=== PATIENT | male | born 1980 | race African-American/Black ===

== ENCOUNTER 2024-07-09 20:06 | Inpatient (IN) | payer OTHER, MEDICAID ==
[~2024-07-09] VITALS: Ht 175.3 cm; Wt 59.0 kg
[2024-07-09 21:40] LABS: HEMATOCRIT. 31.1 % (42.0-52.0); HEMOGLOBIN. 10.5 g/dL (14.0-18.0); MEAN CORPUSCULAR HEMOGLOBIN 28.4 pg (28.0-32.0); MEAN CORPUSCULAR HGB CONC 33.9 g/dL (31.0-37.0); MEAN CORPUSCULAR VOLUME 83.8 fL (80.0-94.0); MEAN PLATELET VOLUME 10.3 fl (7.4-10.4); PLATELET 989 x1000/uL (130-400); RED BLOOD CELL COUNT 3.72 mill/uL (4.7-6.1); RED CELL DISTRIBUTION WIDTH 23.1 % (11.6-14.6); WHITE BLOOD COUNT 17.6 x1000/uL (4.5-11.0)
[2024-07-09 21:42] LABS: DIFFERENTIAL COMMENT 1
[2024-07-09 21:45] LABS: CHLORIDE 105 mEq/L (98-107); POTASSIUM 3.9 mEq/L (3.5-5.1); SODIUM 139 mEq/L (136-145)
[2024-07-09 21:46] LABS: CALCIUM 10.3 mg/dL (8.7-10.4); CARBON DIOXIDE 26 mEq/L (21-32)
[2024-07-09 21:51] LABS: CREATININE 0.8 mg/dL (0.6-1.3); GLUCOSE 126 mg/dL (70-105); UREA NITROGEN BLOOD 8 mg/dL (9-23)
[2024-07-09] MEDS: SODIUM CHLORIDE 0.9% 1,000 ML IV ONE (21:52)
[2024-07-09 21:53] LABS: ALANINE AMINOTRANSFERASE 19 IU/L (10-49); ALBUMIN 5.3 g/dL (3.2-4.8); ASPARTATE AMINOTRANSFERASE 39 IU/L (<34); TROPONIN I HIGH SENSITIVITY 30 ng/L (3.0-53)
[2024-07-09 21:54] LABS: BILIRUBIN DIRECT 0.6 mg/dL (<=3.0); BILIRUBIN TOTAL 1.9 mg/dL (0.1-1.0); PROTEIN TOTAL 9.2 g/dL (6.0-8.3)
[2024-07-09 22:00] LABS: ANISOCYTOSIS 3+; NUCLEATED RED BLOOD CELLS 2 /100 WBC; PLATELET ESTIMATE MARKEDLY INCREASED; SICKLE CELLS 2+
[2024-07-09] MEDS: KETOROLAC 30MG/ML VIAL IV STA (23:16)
[2024-07-10] MEDS ORDERED: MORPHINE SULFATE 4 MG/ML INJ (FOR IV/IM USE) IV STA (00:42)
[2024-07-10 01:16] LABS: TROPONIN I HIGH SENSITIVITY 29 ng/L (3.0-53)
[2024-07-10 01:58] LABS: CLARITY URINE CLEAR (CLEAR); COLOR URINE YELLOW (YELLOW); GLUCOSE URINE NEGATIVE (NEGATIVE); KETONES URINE NEGATIVE (NEGATIVE); LEUKOCYTE ESTERASE URINE TRACE (NEGATIVE); NITRITE URINE NEGATIVE (NEGATIVE); OCCULT BLOOD URINE NEGATIVE (NEGATIVE); PH URINE 5.5 (4.5-8.0); PROTEIN URINE 2+ (NEGATIVE); SPECIFIC GRAVITY URINE 1.015 (1.005-1.030)
[2024-07-10 02:11] LABS: BACTERIA URINE TRACE; RBC URINE NONE SEEN /hpf (0-2); SQUAMOUS EPITHELIAL CELL URINE FEW /lpf (RARE/1+); WBC URINE 0-2 /hpf (0-2)
[2024-07-10] MEDS ORDERED: MORPHINE SULFATE 4 MG/ML INJ (FOR IV/IM USE) IV NR (02:45)
[2024-07-10] MEDS: SODIUM CHLORIDE 0.9% 1,000 ML IV ONE (03:30)
[2024-07-10] MEDS ORDERED: GUAIFENESIN 200MG/10ML SUGAR FREE UDC PO PRN (06:30)
[2024-07-10] MEDS ORDERED: CLONIDINE 0.1MG TABLET PO PRN (06:30)
[2024-07-10] MEDS ORDERED: ACETAMINOPHEN 325MG TABLET PO PRN ×2 (06:30)
[2024-07-10] MEDS ORDERED: DOCUSATE SODIUM 100MG CAPSULE PO PRN (06:30)
[2024-07-10] MEDS ORDERED: IPRATROPIUM/ALBUTEROL 0.5-3(2.5)MG/3ML NEB HHN PRN (06:30)
[2024-07-10 07:39] LABS: IRON 38 ug/dL (65-175)
[2024-07-10 07:41] LABS: TOTAL IRON BINDING CAPACITY 147 ug/dl (250-425)
[2024-07-10 07:45] LABS: FOLIC ACID (FOLATE) SERUM 7.41 ng/mL (>5.38); VITAMIN B12 SERUM 871 pg/mL (211-911)
[2024-07-10] MEDS: LACTATED RINGERS 1,000 ML IV SCH (09:37)
[2024-07-10] MEDS: MORPHINE SULFATE 4 MG/ML INJ (FOR IV/IM USE) IV NR (09:38)
[2024-07-10] MEDS: HYDROXYUREA 500MG CAPSULE PO NR (10:07)
[2024-07-10 17:35] LABS: CREATINE KINASE 75 IU/L (46-171)
[2024-07-10 23:11] VITALS: BP 100/55; PULSE 70; RESP 16; TEMP 36.5292
[2024-07-11] VITALS: BP 100/55; PULSE 70; RESP 18; TEMP 36.50292; O2SAT 99
[2024-07-11 00:07] LABS: CREATINE KINASE 63 IU/L (46-171)
[2024-07-11] MEDS: DIPHENHYDRAMINE 50MG/ML VIAL IV PRN (02:46)
[2024-07-11] MEDS: ONDANSETRON HCL 4MG/2ML INJ IV PRN (02:47)
[2024-07-11] MEDS: KETOROLAC 15MG/ML VIAL IV PRN (02:54)
[2024-07-11 04:00] VITALS: BP 111/58; PULSE 79; RESP 18; TEMP 36.50292; O2SAT 100
[2024-07-11 06:23] LABS: CHLORIDE 110 mEq/L (98-107); POTASSIUM 3.8 mEq/L (3.5-5.1); SODIUM 144 mEq/L (136-145)
[2024-07-11 06:24] LABS: CARBON DIOXIDE 27 mEq/L (21-32)
[2024-07-11 06:25] LABS: CALCIUM 9.4 mg/dL (8.7-10.4)
[2024-07-11 06:29] LABS: CREATININE 0.8 mg/dL (0.6-1.3)
[2024-07-11 06:30] LABS: GLUCOSE 77 mg/dL (70-105); UREA NITROGEN BLOOD 13 mg/dL (9-23)
[2024-07-11 06:34] LABS: T4 FREE 1.23 ng/dL (0.89-1.76); THYROID STIMULATING HORMONE 1.23 uIU/mL (0.55-4.78)
[2024-07-11 06:43] LABS: HEMATOCRIT. 27.4 % (42.0-52.0); HEMOGLOBIN. 9.1 g/dL (14.0-18.0); MEAN CORPUSCULAR HEMOGLOBIN 28.1 pg (28.0-32.0); MEAN CORPUSCULAR HGB CONC 33.2 g/dL (31.0-37.0); MEAN CORPUSCULAR VOLUME 84.5 fL (80.0-94.0); MEAN PLATELET VOLUME 11.1 fl (7.4-10.4); PLATELET 832 x1000/uL (130-400); RED BLOOD CELL COUNT 3.24 mill/uL (4.7-6.1); RED CELL DISTRIBUTION WIDTH 22.1 % (11.6-14.6)
[2024-07-11 07:10] LABS: DIFFERENTIAL COMMENT 1
[2024-07-11 08:00] VITALS: BP 110/43; PULSE 68; RESP 18; TEMP 36.61404; O2SAT 96
[2024-07-11] MEDS ORDERED: NALOXONE HCL 0.4MG/ML VIAL IV PRN (08:15)
[2024-07-11] MEDS: MORPHINE SULFATE 2 MG/ML INJ (NOT FOR IM USE) IV PRN (09:09)
[2024-07-11 10:05] LABS: *AMPHETAMINES SCREEN URINE NEGATIVE (NEGATIVE); *BARBITURATES SCREEN URINE NEGATIVE (NEGATIVE); *BENZODIAZEPINES SCREEN URINE NEGATIVE (NEGATIVE); *COCAINE SCREEN URINE NEGATIVE (NEGATIVE); CANNABINOID URINE SCREEN NEGATIVE (NEGATIVE); ECSTASY MDMA SCREEN URINE NEGATIVE (NEGATIVE); METHADONE URINE SCREEN NEGATIVE (NEGATIVE); OPIATES URINE SCREEN PRESUMPTIVE POSITIVE (NEGATIVE); PHENCYCLIDINE URINE SCREEN NEGATIVE (NEGATIVE)
[2024-07-11 11:14] LABS: ALANINE AMINOTRANSFERASE 15 IU/L (10-49); ALBUMIN 4.4 g/dL (3.2-4.8); ASPARTATE AMINOTRANSFERASE 33 IU/L (<34); BILIRUBIN DIRECT 0.6 mg/dL (<=3.0); BILIRUBIN TOTAL 1.7 mg/dL (0.1-1.0); PROTEIN TOTAL 7.7 g/dL (6.0-8.3)
[2024-07-11 12:00] VITALS: BP 101/67; PULSE 57; RESP 18; TEMP 36.16956; O2SAT 98
[2024-07-11 16:00] VITALS: BP 96/55; PULSE 60; RESP 18; TEMP 36.50292; O2SAT 97
[2024-07-11 16:25] LABS: NUCLEATED RED BLOOD CELLS 1 /100 WBC
[2024-07-11 16:33] LABS: TARGET CELLS 2+
[2024-07-11 16:39] LABS: GIANT PLATELETS FEW; SICKLE CELLS 2+; TEAR DROP CELLS 1+
[2024-07-11 16:42] LABS: PLATELET ESTIMATE MARKEDLY INCREASED
[2024-07-11 16:46] LABS: ANISOCYTOSIS 3+
[2024-07-11 20:00] VITALS: BP 102/48; PULSE 64; RESP 20; TEMP 36.50292; O2SAT 99
[2024-07-12] VITALS: BP 101/58; PULSE 79; RESP 19; TEMP 36.61404; O2SAT 99
[2024-07-12 04:00] VITALS: BP 103/61; PULSE 81; RESP 20; TEMP 36.33624; O2SAT 100
[2024-07-12 08:00] VITALS: BP 106/60; PULSE 63; RESP 18; TEMP 36.50292; O2SAT 97
[2024-07-12 12:00] VITALS: BP 95/62; PULSE 68; RESP 18; TEMP 36.61404; O2SAT 98
[2024-07-12 13:17] VITALS: RESP 18
[2024-07-12] MEDS ORDERED: HYDR500C18 MT (15:41)
[2024-07-12 15:48] VITALS: BP 100/62; PULSE 74; TEMP 97.6; O2SAT 98
[2024-07-12 17:12] LABS: CHLORIDE 103 mEq/L (98-107); POTASSIUM 3.8 mEq/L (3.5-5.1); SODIUM 139 mEq/L (136-145)
[2024-07-12 17:13] LABS: CALCIUM 9.8 mg/dL (8.7-10.4); CARBON DIOXIDE 30 mEq/L (21-32)
[2024-07-12 17:18] LABS: CREATININE 0.8 mg/dL (0.6-1.3); GLUCOSE 62 mg/dL (70-105); UREA NITROGEN BLOOD 8 mg/dL (9-23)
[2024-07-12 17:20] LABS: ALANINE AMINOTRANSFERASE 14 IU/L (10-49); ALBUMIN 4.6 g/dL (3.2-4.8); ASPARTATE AMINOTRANSFERASE 31 IU/L (<34); BILIRUBIN DIRECT 0.4 mg/dL (<=3.0); BILIRUBIN TOTAL 1.4 mg/dL (0.1-1.0); PROTEIN TOTAL 7.8 g/dL (6.0-8.3)
[2024-07-12 17:26] LABS: HEMATOCRIT. 30.8 % (42.0-52.0); MEAN CORPUSCULAR HGB CONC 32.4 g/dL (31.0-37.0); MEAN CORPUSCULAR VOLUME 83.5 fL (80.0-94.0); MEAN PLATELET VOLUME 11.5 fl (7.4-10.4); PLATELET 935 x1000/uL (130-400); RED BLOOD CELL COUNT 3.69 mill/uL (4.7-6.1); RED CELL DISTRIBUTION WIDTH 22.4 % (11.6-14.6); WHITE BLOOD COUNT 14.7 x1000/uL (4.5-11.0)
[2024-07-12 17:31] LABS: DIFFERENTIAL COMMENT 1
[2024-07-12 23:30] LABS: NUCLEATED RED BLOOD CELLS 6 /100 WBC
[2024-07-12 23:31] LABS: ANISOCYTOSIS 3+; HYPOCHROMASIA 1+; PLATELET ESTIMATE MARKEDLY INCREASED; SICKLE CELLS 2+; TARGET CELLS 1+
[2024-07-12 23:32] LABS: GIANT PLATELETS FEW; TEAR DROP CELLS 1+
[2024-07-14 15:06] LABS: TESTOSTERONE FREE <0.2 pg/mL (6.8-21.5)
== END 2024-07-12 17:00 | disposition home or self-care (01) | DRG 812 ==
LOC: ER 20:06 → 5WST 07-10 02:25 → EDBEDREQ 07-10 02:32 → 8WST 07-10 21:04
PROVIDERS: ADMIT Preventive Medicine Clinical Informatics; ATTEND Preventive Medicine Clinical Informatics
DX: D57.09 Hb-SS disease with crisis with other specified complication (principal); C92.10 Chronic myeloid leukemia, BCR/ABL-positive, not having achieved remission; D75.839 Thrombocytosis, unspecified; R70.1 Abnormal plasma viscosity; F64.0 Transsexualism; F64.9 Gender identity disorder, unspecified; E80.6 Other disorders of bilirubin metabolism
CPT/HCPCS: 36415; 71045; 76700; 80048; 80076; 80305; 81003; 82550; 82607; 82746; 83540; 83550; 84145; 84402; 84403; 84439; 84443; 84484; 85025; 85044; 93005; 93970; 99285; J1200; J1885; J2270; J2405; J7030

== ENCOUNTER 2024-07-18 09:50 | Inpatient (IN) | payer OTHER, MEDICAID, MEDICARE ==
[~2024-07-18] VITALS: Ht 154.9 cm; Wt 68.9 kg
[~2024-07-18 09:50] MED LIST: HYDR500C18 MT
[2024-07-18 10:21] LABS: CLARITY URINE CLEAR (CLEAR); COLOR URINE DARK YELLOW (YELLOW); GLUCOSE URINE NEGATIVE (NEGATIVE); KETONES URINE NEGATIVE (NEGATIVE); LEUKOCYTE ESTERASE URINE TRACE (NEGATIVE); NITRITE URINE NEGATIVE (NEGATIVE); OCCULT BLOOD URINE NEGATIVE (NEGATIVE); PROTEIN URINE 1+ (NEGATIVE); SPECIFIC GRAVITY URINE 1.014 (1.005-1.030)
[2024-07-18 10:30] LABS: BACTERIA URINE 1+; RBC URINE NONE SEEN /hpf (0-2); SQUAMOUS EPITHELIAL CELL URINE NONE SEEN /lpf (RARE/1+); WBC URINE 0-2 /hpf (0-2); YEAST URINE NONE SEEN
[2024-07-18 10:30] LABS: HEMOGLOBIN. 8.9 g/dL (14.0-18.0); MEAN CORPUSCULAR VOLUME 81.9 fL (80.0-94.0); MEAN PLATELET VOLUME 10.8 fl (7.4-10.4)
[2024-07-18 10:38] LABS: DIFFERENTIAL COMMENT 1
[2024-07-18 10:40] LABS: CARBON DIOXIDE 23 mEq/L (21-32); CHLORIDE 104 mEq/L (98-107); POTASSIUM 3.5 mEq/L (3.5-5.1); SODIUM 136 mEq/L (136-145)
[2024-07-18 10:41] LABS: CALCIUM 9.3 mg/dL (8.7-10.4)
[2024-07-18] MEDS ORDERED: ONDANSETRON HCL 4MG/2ML INJ IV ONE (10:45)
[2024-07-18] MEDS ORDERED: MORPHINE SULFATE 4 MG/ML INJ (FOR IV/IM USE) IV ONE (10:45)
[2024-07-18] MEDS: SODIUM CHLORIDE 0.9% 1,000 ML IV ONE (10:45)
[2024-07-18 10:46] LABS: GLUCOSE 117 mg/dL (70-105); UREA NITROGEN BLOOD 20 mg/dL (9-23)
[2024-07-18 10:47] LABS: TROPONIN I HIGH SENSITIVITY 24 ng/L (3.0-53)
[2024-07-18 10:55] LABS: CREATININE 1.4 mg/dL (0.6-1.3)
[2024-07-18 11:18] LABS: ANISOCYTOSIS 4+; NUCLEATED RED BLOOD CELLS 7 /100 WBC; PLATELET ESTIMATE MARKEDLY INCREASED
[2024-07-18 11:19] LABS: TARGET CELLS 1+
[2024-07-18 11:20] LABS: GIANT PLATELETS 1+; SICKLE CELLS 2+
[2024-07-18 11:21] LABS: PLATELET 1452 x1000/uL (130-400)
[2024-07-18] MEDS: MORPHINE SULFATE 4 MG/ML INJ (FOR IV/IM USE) IV NR (12:49)
[2024-07-18] MEDS: HYDROXYUREA 500MG CAPSULE PO ONE (12:49)
[2024-07-18] MEDS: ONDANSETRON HCL 4MG/2ML INJ IV NR (12:50)
[2024-07-18] MEDS: SODIUM CHLORIDE 0.9% 1000ML BAG (SEPSIS BOLUS) IV ONE (13:50)
[2024-07-18] MEDS: PIPERACILLIN/TAZO 3.375G/50ML 50 ML IV SCH (13:51)
[2024-07-18 16:00] VITALS: BP 110/52; PULSE 109; RESP 18; TEMP 37.3632
[2024-07-18] MEDS ORDERED: NALOXONE HCL 0.4MG/ML VIAL IV PRN (19:15)
[2024-07-18] MEDS ORDERED: CLONIDINE 0.1MG TABLET PO PRN (19:15)
[2024-07-18] MEDS ORDERED: IPRATROPIUM/ALBUTEROL 0.5-3(2.5)MG/3ML NEB HHN PRN (19:15)
[2024-07-18] MEDS ORDERED: PIPERACILLIN/TAZOBACTAM 3.375 G in DEXTROSE 5% WATER 50 ML IV SCH (19:15)
[2024-07-18] MEDS ORDERED: ONDANSETRON HCL 4MG/2ML INJ IV PRN (19:15)
[2024-07-18 20:00] VITALS: BP 97/41; PULSE 109; RESP 19; TEMP 39.28092; O2SAT 97
[2024-07-18] MEDS: DIPHENHYDRAMINE 50MG/ML VIAL IV PRN (20:44)
[2024-07-18] MEDS: MORPHINE SULFATE 2 MG/ML INJ (NOT FOR IM USE) IV PRN (20:45)
[2024-07-18] MEDS: ACETAMINOPHEN 325MG TABLET PO PRN (20:45)
[2024-07-18] MEDS: SODIUM CHLORIDE 0.9% 1,000 ML IV SCH (21:58)
[2024-07-18] MEDS: PIPERACILLIN/TAZO 3.375G/50ML IV SCH (21:59)
[2024-07-19] VITALS: BP 95/50; PULSE 96; RESP 19; TEMP 36.89184; O2SAT 98
[2024-07-19 04:00] VITALS: BP 97/45; PULSE 95; RESP 18; TEMP 36.72516; O2SAT 98
[2024-07-19 07:34] LABS: CHLORIDE 111 mEq/L (98-107); POTASSIUM 3.4 mEq/L (3.5-5.1); SODIUM 145 mEq/L (136-145)
[2024-07-19 07:35] LABS: CALCIUM 9.4 mg/dL (8.7-10.4); CARBON DIOXIDE 23 mEq/L (21-32)
[2024-07-19 07:40] LABS: CREATININE 0.8 mg/dL (0.6-1.3); GLUCOSE 83 mg/dL (70-105); UREA NITROGEN BLOOD 11 mg/dL (9-23)
[2024-07-19 08:00] VITALS: BP 97/60; PULSE 95; RESP 18; TEMP 36.61404; O2SAT 97
[2024-07-19 08:03] LABS: HEMATOCRIT. 22.9 % (42.0-52.0); HEMOGLOBIN. 7.4 g/dL (14.0-18.0); MEAN CORPUSCULAR HEMOGLOBIN 27.1 pg (28.0-32.0); MEAN CORPUSCULAR HGB CONC 32.2 g/dL (31.0-37.0); MEAN CORPUSCULAR VOLUME 84.1 fL (80.0-94.0); MEAN PLATELET VOLUME 11.4 fl (7.4-10.4); RED BLOOD CELL COUNT 2.73 mill/uL (4.7-6.1); RED CELL DISTRIBUTION WIDTH 23.4 % (11.6-14.6)
[2024-07-19 08:11] LABS: DIFFERENTIAL COMMENT 1
[2024-07-19 08:14] LABS: PLATELET 1273 x1000/uL (130-400)
[2024-07-19 12:00] VITALS: BP 104/60; PULSE 95; RESP 16; TEMP 36.22512; O2SAT 99
[2024-07-19] MEDS: HYDROXYUREA 500MG CAPSULE PO SCH (12:34)
[2024-07-19] MEDS: POTASSIUM CHLORIDE 20MEQ TABLET SR PO NR (12:34)
[2024-07-19] MEDS ORDERED: HYDROMORPHONE HCL/PF 2MG/ML INJ IV PRN (15:00)
[2024-07-19 15:45] VITALS: BP 97/54; PULSE 86; RESP 18; TEMP 36.114; O2SAT 100
[2024-07-19 16:53] LABS: ANISOCYTOSIS 1+; GIANT PLATELETS 2+; NUCLEATED RED BLOOD CELLS 2 /100 WBC; PLATELET ESTIMATE INCREASED
[2024-07-19 20:00] VITALS: BP 114/58; PULSE 87; RESP 19; TEMP 37.33632; O2SAT 100
[2024-07-20] VITALS: BP 102/52; PULSE 76; RESP 19; TEMP 37.00296; O2SAT 100
[2024-07-20 04:00] VITALS: BP 95/64; PULSE 87; RESP 19; TEMP 36.28068; O2SAT 100
[2024-07-20 08:00] VITALS: BP 93/56; PULSE 86; RESP 18; TEMP 36.72516; O2SAT 98
[2024-07-20] MEDS ORDERED: LIDOCAINE HCL 1% 10 MG/ML 10ML VIAL ONE (10:29)
[2024-07-20 12:00] VITALS: BP 104/62; PULSE 81; RESP 18; TEMP 36.6696; O2SAT 97
[2024-07-20 16:00] VITALS: BP 99/58; PULSE 80; RESP 18; TEMP 36.3918; O2SAT 99
[2024-07-21 07:43] LABS: HEMATOCRIT. 23.7 % (42.0-52.0); HEMOGLOBIN. 7.6 g/dL (14.0-18.0); MEAN CORPUSCULAR HEMOGLOBIN 27.7 pg (28.0-32.0); MEAN CORPUSCULAR HGB CONC 32.1 g/dL (31.0-37.0); MEAN CORPUSCULAR VOLUME 86.2 fL (80.0-94.0); MEAN PLATELET VOLUME 11.1 fl (7.4-10.4); RED BLOOD CELL COUNT 2.75 mill/uL (4.7-6.1); RED CELL DISTRIBUTION WIDTH 22.4 % (11.6-14.6)
[2024-07-21 07:44] LABS: CHLORIDE 108 mEq/L (98-107); POTASSIUM 3.5 mEq/L (3.5-5.1); SODIUM 141 mEq/L (136-145)
[2024-07-21 07:45] LABS: CARBON DIOXIDE 27 mEq/L (21-32)
[2024-07-21 07:46] LABS: CALCIUM 9.4 mg/dL (8.7-10.4)
[2024-07-21 07:50] LABS: CREATININE 0.6 mg/dL (0.6-1.3); GLUCOSE 92 mg/dL (70-105)
[2024-07-21 07:51] LABS: UREA NITROGEN BLOOD 6 mg/dL (9-23)
[2024-07-21 08:00] VITALS: BP 95/57; PULSE 79; RESP 20; TEMP 36.72516; O2SAT 96
[2024-07-21 08:36] LABS: DIFFERENTIAL COMMENT 1; PLATELET 1495 x1000/uL (130-400)
[2024-07-21] MEDS ORDERED: PHENOL/SODIUM PHENOLATE 1.4% SRPAY 177ML MM PRN (09:00)
[2024-07-21 12:00] VITALS: BP 100/74; PULSE 80; RESP 16; TEMP 36.61404; O2SAT 96
[2024-07-21 14:35] LABS: NUCLEATED RED BLOOD CELLS 16 /100 WBC; PLATELET ESTIMATE MARKEDLY INCREASED
[2024-07-21 14:36] LABS: ANISOCYTOSIS 3+; SICKLE CELLS 1+; TARGET CELLS 2+
[2024-07-21 16:00] VITALS: BP 101/51; PULSE 74; RESP 18; TEMP 37.05852; O2SAT 97
[2024-07-22 08:55] VITALS: BP 90/48; PULSE 69; RESP 18; TEMP 36.00288; O2SAT 96
[2024-07-22] MEDS ORDERED: OXYC-662 MT (12:00)
[2024-07-22 12:06] VITALS: BP 92/55; PULSE 73; RESP 20; TEMP 36.05844; O2SAT 98
[2024-07-22 15:10] VITALS: BP 92/55; PULSE 73; TEMP 96.9; O2SAT 98
[2024-07-22 16:00] VITALS: BP 94/56; PULSE 78; RESP 18; TEMP 37.16964; O2SAT 100
== END 2024-07-22 17:00 | disposition home or self-care (01) | DRG 438 ==
LOC: ER 10:08 → 7WST 13:11 → EDBEDREQ 13:13 → EDBEDREQTM 13:13
PROVIDERS: ADMIT Internal Medicine; ATTEND Internal Medicine
PROC: 02HV33Z Insertion of Infusion Device into Superior Vena Cava, Percutaneous Approach (ICD-10-PCS; principal; 2024-07-20)
PROC: B548ZZA Ultrasonography of Superior Vena Cava, Guidance (ICD-10-PCS; 2024-07-20)
DX: K85.90 Acute pancreatitis without necrosis or infection, unspecified (principal); D57.00 Hb-SS disease with crisis, unspecified; C92.10 Chronic myeloid leukemia, BCR/ABL-positive, not having achieved remission; K56.41 Fecal impaction; D75.839 Thrombocytosis, unspecified
CPT/HCPCS: 36415; 36573; 71045; 74176; 80048; 81003; 83605; 84484; 85025; 85044; 86850; 86870; 86900; 87070; 87430; 94640; 99285; C1725; C1893; J1200; J2270; J2405; J2543; J3490; J7030